=== PATIENT | male | born 1945 | race Two or more races ===

== ENCOUNTER 2019-08-31 07:34 | Outpatient (CLI) | payer OTHER | END 2019-08-31 07:43 | disposition home or self-care (01) | LOC: TOM 07:34 | PROVIDERS: ATTEND Surgery | DX: K40.90 Unilateral inguinal hernia, without obstruction or gangrene, not specified as recurrent (principal) | CPT/HCPCS: 74177; Q9965 ==

== ENCOUNTER 2019-09-19 05:10 | Day surgery (SDC) | payer OTHER | END 2019-09-19 15:00 | disposition home or self-care (01) | LOC: CIR.AMB 05:10 | PROVIDERS: ATTEND Surgery | DX: K40.31 Unilateral inguinal hernia, with obstruction, without gangrene, recurrent (principal); Z20.828 Contact with and (suspected) exposure to other viral communicable diseases ==